=== PATIENT | male | born 1940 | race Caucasian/White ===

== ENCOUNTER → 2016-10-01 | Outpatient (CLI) | payer MEDICARE, MEDICAID | LOC: M ONCR 11:05 | PROVIDERS: ATTEND Radiology Radiation Oncology | DX: C61 Malignant neoplasm of prostate (principal) ==

== ENCOUNTER → 2017-03-25 | Outpatient (CLI) | payer MEDICARE, MEDICAID ==
[~2017-03-25] MED LIST: ATEN25TA PO; DEPA250T2 PO; DIVA125C5 PO; FERR325T3 PO; FLOM5CAP PO; KEPP1TAB2 PO; OMEP20CA3 PO; PLAV1TAB2 PO; SYNT75TA PO; VYTO10TA22 PO
--- NOTE | 2017-03-25 11:30 | RADONC ---
RADIATION ONCOLOGY FOLLOWUP NOTE DATE: 03/25/2017 CHART NUMBER: [id number]. DIAGNOSIS: Prostate cancer stage II B, [id number]. ECOG PERFORMANCE STATUS: 0. FOLLOWUP NOTE: Mr. Gaitan is a very pleasant 76-year-old white male with the diagnosis of a stage II B, [id number], moderate to poorly differentiated Yissel score 7 (4-3) adenocarcinoma of the prostate who is presenting to us today for routine followup visit 1 year and 1 month post completion of external beam radiation therapy. The patient presents today reporting that he has some episodic rectal bleeding every five days or so. He reports small blood clots. The patient reports that the water in the toilet bowl does not turn red. The clots are quite small and as mentioned above occur once a week or so. His bowel movements are otherwise normal. The patient is scheduled for a colonoscopy to evaluate this bleeding issue. REVIEW OF SYSTEMS: The patient's review of systems is positive for episodic rectal bleeding, but is otherwise noncontributory. Denies nausea, vomiting, fevers, chills, night sweats, diplopia, headaches, anxiety or depression, anorexia, weight loss, visual disturbances, chest pain, urinary or bowel difficulties, bone pain, or neurological problems. PHYSICAL EXAMINATION: The patient is a well-developed, well-nourished male in no acute distress. HEENT exam is normocephalic, atraumatic. Extraocular movements are intact. There is no palpable cervical, supraclavicular, infraclavicular, axillary, or inguinal lymphadenopathy present. Lungs are clear to auscultation and percussion. Heart has a regular rate and rhythm. Abdomen is benign with no hepatosplenomegaly, masses, or tenderness. Rectal examination reveals a normal anal sphincter tone. His prostate is smooth with no evidence of nodularity. Skeletal examination reveals no tenderness to pressure or percussion of the bony skeleton. Extremities reveal no clubbing, cyanosis, or edema. Neurologic exam is grossly intact, as is the remainder of the physical examination. ASSESSMENT: The patient is clinically DAYANA at this time and will be seen by me again in 3 months for further followup. In the meantime, he is scheduled for colonoscopy and further evaluation. I suspect that this rectal bleeding is secondary to his radiation. At the present time, it is not causing him any significant difficulties and the bleeding is minimal. We will continue to follow him. He has been instructed to contact our office if he has any issues or any questions whatsoever. cc: MD Ronnie Delgadillo, DO
== END ==
LOC: M ONCR 10:44
PROVIDERS: ATTEND Radiology Radiation Oncology
DX: C61 Malignant neoplasm of prostate (principal)

== ENCOUNTER → 2018-12-29 | Outpatient (CLI) | payer MEDICARE, MEDICAID ==
[~2018-12-29] MED LIST changes: -DIVA125C5 PO; +DIVA1CAP PO; +FLOM0.4C39 PO; -FLOM5CAP PO
--- NOTE | 2018-12-29 13:31 | PFTRPT ---
Site: [facility], [address] [place] [address], [id number] ID: [id number] Name: CECILIA HERNANDES Visit Date: 12/29/2018 Second ID: [id number] Referring Doctor: LEONCIO Garcia, Jimbo Mahmood Reviewing Doctor: Sarwat Tijerina MD Laboratory Helper: Chikis ROSARIO RRT Age: 78 : 1940 Sex: Male Race: Height: 62.00 Inches Weight: 156.00 Lbs BSA: 1.72 Order IDs: [id number] Requested Test(s): <RESP-PFT.DLCO> Diagnosis: R94.2 VC. DLCO may be underestimated. Pt had difficulty performing DLCO maneuver. Pt was given four puffs of albuterol for postbronchodilator. Review Status: Not Reviewed Pre-Bronch Post-Bronch Pred Actual %Pred Actual %Chng SPIROMETRY FVC (L) 2.87 1.94 67 1.92 -1 FEV1 (L) 2.01 1.45 71 1.42 -2 FEV1/FVC (%) 72 75 103 74 FEF 25% (L/sec) 5.93 3.13 52 3.38 7 FEF 50% (L/sec) 3.92 1.52 38 1.22 -19 FEF 75% (L/sec) 0.81 0.39 48 0.40 2 FEF 25-75% (L/sec) 1.40 1.09 78 1.00 -8 FEF Max (L/sec) 5.85 3.14 53 3.74 19 FIVC (L) 1.98 1.58 -20 FIF 50% (L/sec) 4.27 2.27 53 1.99 -12 FIF Max (L/sec) 2.29 2.13 -6 MVV (L/min) 91 47 51 Expiratory Time (sec) 7.06 6.84 -3 Back Extrap Vol (L) 0.10 0.10 Time To FEFmax (sec) 0.158 0.096 -39 LUNG VOLUMES SVC (L) 3.27 2.33 71 IC (L) 2.59 1.17 45 ERV (L) 0.68 1.16 171 TGV (L) 2.84 2.21 77 RV (Pleth) (L) 2.16 1.04 48 TLC (Pleth) (L) 5.43 3.38 62 RV/TLC (Pleth) (%) 38 31 81 DIFFUSION DLCOunc (ml/min/mmHg) 21.10 7.80 36 DLCOcor (ml/min/mmHg) 21.10 8.01 37 DL/VA (ml/min/mmHg/L) 3.89 2.69 69 VA (L) 5.43 2.98 54 BHT (sec) 11.14 IVC (L) 1.65 TLC (SB) (L) 3.13 AIRWAYS RESISTANCE Raw (cmH2O/L/s) 1.45 0.65 45 Gaw (L/s/cmH2O) 1.03 1.57 152 sRaw (cmH2O*s) 4.76 1.48 31 sGaw (1/cmH2O*s) 0.20 0.69 345 BLOOD GASES Hgb (gm/dL) 13.7
== END ==
LOC: M CARPUL 12:00
PROVIDERS: ATTEND Physician Assistant
DX: R94.2 Abnormal results of pulmonary function studies (principal); R05 Cough